=== PATIENT | female | born 1940 | race Caucasian/White ===

== ENCOUNTER 2018-03-28 19:44 | Emergency (ER) | payer MEDICARE ==
[~2018-03-28] VITALS: Ht 157.5 cm; Wt 59.5 kg
[2018-03-28] MEDS ORDERED: HYDROcodone/APAP 5/325 TABLET ONE (20:57)
[2018-03-28] MEDS ORDERED: PLEASE ENTER ALLERGIES MC SCH (21:00)
[2018-03-28] MEDS ORDERED: HYDROcodone/APAP 5/325 TABLET PO ONE (21:00)
[2018-03-28 21:55] VITALS: BP 143/89
== END 2018-03-28 23:02 | disposition home or self-care (01) ==
LOC: EDBD 19:44 → ED 22:30
DX: R07.89 Other chest pain (principal); R10.12 Left upper quadrant pain; F17.200 Nicotine dependence, unspecified, uncomplicated
CPT/HCPCS: 71046; 74021; 99284